=== PATIENT | male | born 1970 | race African-American/Black ===

== ENCOUNTER 2017-10-22 11:15 | Emergency (ER) | payer MEDICAID, SELFPAY ==
[2017-10-22 11:16] VITALS: BP 127/82; PULSE 80; RESP 16; TEMP 36.6; O2SAT 97; BMI 26.4
[2017-10-22] MEDS: Ondansetron 4 MG/2 ML Vial IV (12:09)
[2017-10-22] MEDS: 0.9% Normal Saline 1,000 ML 125 ML IV (12:09)
[2017-10-22] MEDS: Dicyclomine 20 MG/2 ML Vial IM (12:09)
[2017-10-22 12:18] LABS: Absolute Lymphocyte Count 2.81 X10^3/ul (0.83-4.51); Absolute Neutrophil Count 4.7 X10^3/uL (2.0-7.7); Basophil# 0.03 X10^3/uL; Basophil% 0.4 % (0-1); Eosinophil# 0.19 X10^3/uL; Eosinophils% 2.2 % (0-5); Hematocrit 46.3 % (40-54); Hemoglobin 16.3 g/dl (13.0-16.5); Lymphocyte # 2.81 X10^3/ul (4.0); Lymphocyte % 33.2 % (19-41); Mean Corp Hgb Conc 35.2 g/gl (32-36); Mean Corpuscular Hgb 31.1 pg (27.0-32.0); Mean Corpuscular Volume 88.4 fL (80-94); Mean Platelet Vol. 10.1 fl (6.2-12.0); Monocyte# 0.75 X10^3/uL; Monocyte% 8.9 % (0-10); Neutrophil # 4.66 X10^3/uL (2.7-7.7); Neutrophil % 55.1 % (47-70); POSITIVE COUNT NO; POSITIVE DIFFERENTIAL NO; POSITIVE MORPHOLOGY NO; Platelet Count 285 K/mm3 (150-450); RBC Distribution Width CV 13.3 % (11.6-14.6); Red Blood Count 5.24 M/mm3 (4.6-6.2); White Blood Count 8.5 K/mm3 (4.4-11.0)
--- NOTE | 2017-10-22 12:21 | ED.DCSUM_ITS ---
- ER Visit Summary Date of Service: 10/22/17 Chief Complaint: Abdominal pain History of Present Illness: The patient is a 47 M with abdominal pain. The patient states his been having the pain intermittently for the past 4 weeks. It is worse before he eats. He describes a burning pain in his midepigastric area with some cramping. Today, he had one episode of vomiting. The patient works in the food industry. He states that he cannot go to work because of his vomiting. He has had no fevers or chills. He denies any other systemic symptoms. The patient has had prior cholecystectomy. Physical Examination: Vital signs reviewed General: Well-nourished, well-developed Head: Normocephalic, atraumatic Eyes: Pupils equal and reactive, extraocular muscles intact Neck, supple, no lymphadenopathy Heart: Regular rate and rhythm Respiratory: No distress, clear bilaterally Abdomen: Soft, nontender, nondistended, no peritoneal signs Back: Nontender Extremities: Nontender, no edema, no cords Skin: Normal color no rash Neuro: Alert and oriented, no focal or lateralizing deficits Test Results: [] Emergency Department Course and Treatment: Patient has very minimal tenderness in the midepigastric area that is intermittent in nature. His symptoms do seem more like a gastritis. As it does wax and wane, I did obtain some screening labs. LFTs and lipase were normal. The patient was treated Bentyl and Zofran. On reevaluation he has had total resolution of his symptoms. He has a repeat nontender examination. I am going to keep the patient on Bentyl and Zofran along with Pepcid. The patient will be discharged home. He was counseled on concerning symptoms and reasons to return. Treatment Plan: [] Disposition: Discharge Impression: 1. Gastritis This note was generated with [employer] dictation software. It may contain incorrect words, spelling, and punctuation that were not noted in review of the chart prior to signing ED Disposition - Plan for ED Patient: Chief Complaint: Abd Pain Instructions: ED PUD Vs Gastritis Prescriptions: Dicyclomine HCl [Bentyl] 20 mg PO TIDAC #20 cap Famotidine [Pepcid] 20 mg PO BID #28 tab Referrals: Richie Vick MD [Primary Care Provider] -
[2017-10-22 12:54] LABS: AST(SGOT) 28 U/L (15-37); Alanine Aminotransfer ALT/SGPT 29 U/L (16-61); Albumin, Serum 4.3 g/dL (3.2-5.0); Alkaline Phosphatase 58 U/L (45-117); Anion Gap 8 (5-15); BUN 17 mg/dL (7-18); Chloride 107 mmol/L (98-107); Creatinine, Serum 1.13 mg/dL (0.70-1.30); EST Glomerular Filtration Rate 75 mL/min (>60); Est Glom Filt Rate - Afr Amer 90 mL/min (>60); Estimated Creatinine Clearance 85.24 ml/min; Globulin 4.1 g/dL (2.2-4.2); Glucose 90 mg/dL (74-106); Lipase 154 U/L (73-393); Potassium 4.1 mmol/L (3.5-5.1); Protein, Total 8.4 g/dL (6.4-8.2); Sodium Level 141 mmol/L (136-145)
[2017-10-22 13:08] VITALS: BP 108/72; PULSE 72; RESP 16; O2SAT 100
== END 2017-10-22 13:10 | disposition home or self-care (01) ==
LOC: ED 12:30
PROVIDERS: Emergency Provider Emergency Medicine; Family Provider Family Medicine; PCP Family Medicine
DX: K29.70 Gastritis, unspecified, without bleeding (principal); I10 Essential (primary) hypertension; Z79.899 Other long term (current) drug therapy; Z90.49 Acquired absence of other specified parts of digestive tract
CPT/HCPCS: 80053; 83690; 85025; 96361; 96372; 96374; 99284; J7030; A4216; J2405

== ENCOUNTER 2017-11-23 17:56 | Emergency (ER) | payer MEDICAID, SELFPAY ==
[2017-11-23 17:57] VITALS: BP 136/106; PULSE 106; RESP 17; TEMP 37.3; O2SAT 99; BMI 28.3
[2017-11-23 18:30] LABS: Mucous, Urine 0 SEEN /hpf (<or=2+); Squamous Epithelial Cells - UA 0 SEEN /hpf (0-5)
[2017-11-23 18:31] LABS: Glucose, Dipstick Normal (Normal); Ketone-Dipstick 5 mg/dl (Negative); Leukocyte Esterase-Dipstick 500 /ul (Negative); Nitrite-Dipstick Positive (Negative); Occult Blood-Urine 250 /ul (Negative); Protein-Dipstick 100 mg/dl (Negative); Specific Gravity, Urine 1.025 (1.002-1.030); Urine Bilirubin Dipstick Negative (Negative); Urine Clarity Cloudy (Clear); Urine Urobilinogen 4 mg/dl (Normal)
[2017-11-23 18:32] LABS: Color, Urine SEE COMMENT BELOW (Yellow)
[2017-11-23 18:51] LABS: Red Blood Cells-Urine > 100 SEEN /hpf (0-5)
[2017-11-23 18:52] LABS: Bacteria 1+ /hpf (None Seen); White Blood Cells 50-100 SEEN /hpf (0-5)
[2017-11-23] MEDS: Smz/Tmp Ds Tablet 1 TABLET PO (19:15)
[2017-11-23 19:20] VITALS: BP 131/98; PULSE 95; RESP 18; O2SAT 97
--- NOTE | 2017-11-23 19:21 | ED.VISSUMM ---
- ER Visit Summary Date of Service: 11/23/17 Chief Complaint: Hematuria History of Present Illness: The patient is a 47 M presenting for evaluation secondary to hematuria. Patient states that today he started to notice that he was having some suprapubic pain dysuria frequency and blood in his urine. Patient denies that he has been having any flank pain. He does endorse that he has some sweats associated with this. Patient is a smoker of about 10 years. Review of systems otherwise negative. Physical Examination: Physical exam unremarkable except for abdominal exam. Patient has some suprapubic tenderness to palpation no guarding no rebound tenderness remainder the physical unremarkable and noted in the template. Test Results: Urinalysis shows leukocytes nitrates and blood Emergency Department Course and Treatment: Patient presented with hematuria and suprapubic pain with dysuria and frequency. Patient's urinalysis does show likely evidence of infection with positive nitrites leukocytes and blood. Patient will be treated with a course of Bactrim. I will refer the patient to urology as he is a smoker and he needs to be sure that this clears as there is a chance of bladder cancer anytime there is hematuria. Patient understands the importance of follow-up. Disposition: Discharge Impression: 1. Hemorrhagic cystitis This note was generated with [employer] dictation software. It may contain incorrect words, spelling, and punctuation that were not noted in review of the chart prior to signing ED Disposition - Plan for ED Patient: Disposition: Home or Assisted Living Chief Complaint: Complaint Diagnosis: UTI (urinary tract infection) Instructions: ED UTI Cystitis Male Prescriptions: Smz/Tmp Ds [Bactrim Ds] 1 tab PO BID #20 tab Referrals: Edgard Roa MD [STAFF PHYSICIAN] - 1-2 Weeks
== END 2017-11-23 19:40 | disposition home or self-care (01) ==
PROVIDERS: Emergency Provider Emergency Medicine; Family Provider Family Medicine; PCP Family Medicine
DX: N30.91 Cystitis, unspecified with hematuria (principal); I10 Essential (primary) hypertension; K21.9 Gastro-esophageal reflux disease without esophagitis; F17.200 Nicotine dependence, unspecified, uncomplicated; Z79.899 Other long term (current) drug therapy
CPT/HCPCS: 81001; 87077; 87086; 87088; 87186; 99283